=== PATIENT | male | born 1955 | race Caucasian/White ===

== ENCOUNTER 2017-10-20 00:12 | Day surgery (SDC) | payer OTHER ==
[~2017-10-20] VITALS: Ht 190.5 cm; Wt 83.0 kg
[2017-10-20] VITALS (7 sets, daily range): BP systolic 96–159; BP diastolic 58–87
[~2017-10-20 00:12] MED LIST: ACE500 PO; AMLO-98 PO; BENZ200C38 PO; CALC500T42 PO; CALC600T72 PO; CAR350 PO; CYC10 PO; CYCL-430 FT; DOCU-416 PO; ESOM20CA31 PO; ESOM40CA42 PO; ETOD200C26 PO; FOL1 PO; GABA-547 PO; GLUC500C29 PO; HYDR12.558 PO; LEVO750T25 PO; LOSA100T67 PO; MEL7.5 PO; METH15TA4 PO; METH454P5 PO; MULT-820 PO; OMEG-26 PO; OXYC-865 PO; PRE20 PO; PROBIOTIC1 EACH PO; RANI-325 PO; ROBC PO; TADA10TA14 PO; [UNRECOGNIZED DRUG - CODE] PO
[2017-10-20] MEDS ORDERED: MIDAZOLAM 2 MG/2 ML VIAL IVP PRN (10:35)
[2017-10-20] MEDS ORDERED: NORMOSOL R SOLN(*) 1000 ML BAG 1,000 ML IV PRN (10:35)
[2017-10-20] MEDS ORDERED: LIDOCAINE/SOD BICARB 8.4% SYR ID ONE (10:35)
--- NOTE | 2017-10-20 11:50 | Short(Outpt) Discharge Summary ---
Discharge Summary Reason for Hosp/Final Diag: (1) Family history of malignant neoplasm of gastrointestinal tract Hospital Course & Plan: Colonoscopy with polypectomy x1 completed without problems. Departure Discharge to: Home, Self Care Discharge Instructions Home Meds Reported Medications Methylcellulose (With Sugar) (CITRUCEL POWDER) 454 Gm Powder, 12 GM PO TID 05/25/17 Tadalafil (CIALIS) Unknown Strength Tablet, PO QDAY Y for prn 05/25/17 Gabapentin (GABAPENTIN) 100 Mg Capsule, 100 MG PO PRN, CAPSULE 05/25/17 Losartan Potassium (LOSARTAN POTASSIUM) 100 Mg Tablet, 100 MG PO QDAY 05/25/17 Ginkgo Biloba (Ginkgo Biloba) 120 Mg Tablet, 120 MG PO QDAY 09/12/12 Lactobacillus Rhamnosus Gg (Probiotic) 1 Each Capsule, 1 EACH PO DAILY 09/12/12 Cyclobenzaprine Hcl (Flexeril) 10 Mg Tab, 10 MG PO HS Y 09/12/12 Carisoprodol (Soma) 350 Mg Tab, 350 MG PO HS Y 09/12/12 Amlodipine Besylate (Amlodipine Besylate) 10 Mg Tablet, 10 MG PO DAILY 09/12/12 Glucosamine Sulfate (Glucosamine) 500 Mg Capsule, 500 MG PO BID, 0 Refills 02/06/10 Calcium Carbonate (Calcium) 600 Mg Tablet, 600 MG PO BID, 0 Refills 02/04/10 Ranitidine Hcl (Zantac) 300 Mg Tablet, 300 MG PO DAILY, 0 Refills 02/04/10 Etodolac (Etodolac) 200 Mg Capsule, 400 MG PO BID, 0 Refills 02/04/10 Multivitamins (Multivitamin) 1 Tab Tablet, 1 TAB PO DAILY 02/04/10 Hydrochlorothiazide (Hydrochlorothiazide) 12.5 Mg Capsule, 25 MG PO DAILY 02/04/10 Diet: Regular Activity: As Tolerated Special Instructions: Your colonoscopy was completed without any problems and your prep was excellent (Good Job!!). I removed a single small polyp from your sigmoid colon. I didn't find any other abnormalities throughout your colon and I didn't see any inflammation anywhere in your colon or rectum. We sent the polyp to pathology for evaluation and my office will call you in about a week to let you know if the polyp is precancerous or not but in any case I recommend that you have another colonoscopy in 5 years due to your family history of colorectal cancer. MARYLU MOON MD Oct 20, 2017 11:50
== END 2017-10-20 11:59 | disposition home or self-care (01) ==
LOC: OR 00:12
PROVIDERS: ATTEND Surgery
DX: Z12.11 Encounter for screening for malignant neoplasm of colon (principal); K63.5 Polyp of colon; Z80.0 Family history of malignant neoplasm of digestive organs
CPT/HCPCS: 88305

== ENCOUNTER → 2017-11-26 | Outpatient (CLI) | payer OTHER ==
--- NOTE | 2017-11-26 08:37 | EKG ---
FACILITY: [facility] [place] PATIENT NAME: ZOE ARCE : [id number] MR: [id number] V: [id number] EXAM DATE: ORDERING PHYSICIAN: MARYLU MCNALLY TECHNOLOGIST: Test Reason : Blood Pressure : / mmHG Vent. Rate : 058 BPM Atrial Rate : 058 BPM P-R Int : 180 ms QRS Dur : 088 ms QT Int : 426 ms P-R-T Axes : 074 072 044 degrees QTc Int : 418 ms Sinus bradycardia Septal infarct , age undetermined Abnormal ECG When compared with ECG of 27-MAY-2017 08:59, No significant change was found Confirmed by ADELAIDA APONTE ([id number]) on 11/27/2017 5:49:50 AM Referred By: Confirmed By:ADELAIDA APONTE
== END ==
LOC: LAB 08:16
PROVIDERS: ATTEND Anesthesiology
DX: Z01.810 Encounter for preprocedural cardiovascular examination (principal); Z01.812 Encounter for preprocedural laboratory examination; S83.241A Other tear of medial meniscus, current injury, right knee, initial encounter; S83.281A Other tear of lateral meniscus, current injury, right knee, initial encounter; R00.1 Bradycardia, unspecified; R94.31 Abnormal electrocardiogram [ECG] [EKG]
CPT/HCPCS: 36415; 82310; 82374; 82435; 82565; 82947; 84132; 84295; 84520; 93005